=== PATIENT | female | born 2000 | race Caucasian/White ===

== ENCOUNTER 2022-05-15 13:43 | Outpatient (CLI) | payer BC, SELFPAY ==
--- NOTE | 2022-05-15 14:00 | CRLHL7_ITS ---
For Patients: As a result of the Century Cures Act, medical imaging exams and procedure reports are released immediately into your electronic medical record. You may view this report before your referring provider. If you have questions, please contact your health care provider. INDICATION: EXCESSIVE AND FREQUENT MENSTRUATION COMPARISON: none TECHNIQUE: 2D esteban scale and color Doppler images were acquired of the pelvis using a transabdominal and transvaginal approach. FINDINGS: Sonographic images demonstrate a normal size and smooth outer contour of the uterus. Uterus measures 8.0 cm in length by 3.6 cm in AP diameter by 4.6 cm in transverse dimension. The myometrium has a normal uniform echotexture. The endometrial lining is heterogeneous with foci of calcification and measures 10 mm in composite thickness. The right ovary measures 4.0 x 1.6 x 2.5 cm in size and the left ovary measures 4.4 x 1.4 x 2.2 cm. The ovaries demonstrate normal arterial and venous blood flow on color Doppler analysis. There are no suspicious fluid collections within the cul-de-sac. IMPRESSION: Endometrial thickness 1 centimeter. Foci of endometrial calcifications appear to be present. No uterine fibroid. Dictated by North Panchal MD @ 05/16/2022 8:58:39 AM (Electronically Signed)
== END 2022-05-15 13:44 | disposition home or self-care (01) ==
LOC: US 13:44
PROVIDERS: PCP Family Medicine; Visit Provider Obstetrics & Gynecology
DX: N92.1 Excessive and frequent menstruation with irregular cycle (principal); R93.89 Abnormal findings on diagnostic imaging of other specified body structures
CPT/HCPCS: 76830; 76856